=== PATIENT | female | born 1980 | race Caucasian/White ===

== ENCOUNTER 2021-09-14 05:24 | Inpatient (IN) | payer OTHER ==
[2021-09-12 14:58] VITALS: BMI 47.5
[2021-09-14] MEDS ORDERED: ONDANSETRON 4 MG/2 ML VIAL ONE (07:16)
[2021-09-14] MEDS ORDERED: LIDOCAINE HCL/PF 2% SDV 5ML VIAL ONE (07:16)
[2021-09-14] MEDS ORDERED: DEXAMETHASONE SOD PHOSPHATE 4 MG/1 ML VIAL ONE (07:16)
[2021-09-14] MEDS ORDERED: PROPOFOL 20 ML ONE ×2 (07:17→07:58)
[2021-09-14] MEDS ORDERED: MIDAZOLAM HCL 2 MG/2 ML SINGLE DOSE VIAL ONE (07:17)
[2021-09-14] MEDS ORDERED: ROCURONIUM BROMIDE 100 MG/10 ML VIAL ONE ×2 (07:17→08:00)
[2021-09-14] MEDS ORDERED: LIDOCAINE 1%/EPI 1:100000 (20 ML MULTI DOSE VIAL) ONE (07:24)
[2021-09-14] MEDS ORDERED: GLYCOPYRROLATE 0.2 MG/1 ML VIAL ONE (08:30)
[2021-09-14] MEDS ORDERED: NEOSTIGMINE METHYLSULFATE 0.5 MG/ML - 10 ML MDV ONE (08:30)
[2021-09-14] MEDS ORDERED: ONDANSETRON 4 MG/2 ML VIAL IVPUSH PRN (08:49)
[2021-09-14] MEDS: LACTATED RINGERS SOLUTION 1,000 ML IV SCH (09:05)
[2021-09-14] MEDS ORDERED: oxyCODONE HCL 5 MG TABLET ONE (10:27)
[2021-09-14] MEDS: oxyCODONE HCL 5 MG TABLET PO PRN ×4 (10:35→23:50)
[2021-09-14] MEDS ORDERED: oxyCODONE HCL 5 MG TABLET PO PRN (14:32)
[2021-09-14] MEDS ORDERED: ACETAMINOPHEN 325 MG TABLET (FP) PO PRN (14:32)
[2021-09-15] MEDS ORDERED: DEXAMETHASONE SOD PHOSPHATE 10 MG/1 ML VIAL IVPUSH SCH (00:45)
[2021-09-15] MEDS ORDERED: DEXAMETHASONE SOD PHOSPHATE 10 MG/1 ML VIAL IVPUSH ONE (01:06)
[2021-09-15] MEDS: DEXAMETHASONE SOD PHOSPHATE 4 MG/1 ML VIAL IVPUSH SCH ×4 (03:36→21:17)
[2021-09-15] MEDS: oxyCODONE HCL 5 MG TABLET PO PRN ×2 (06:58→14:41)
[2021-09-15] MEDS: LACTATED RINGERS SOLUTION 1,000 ML IV SCH (09:25)
[2021-09-15] MEDS: ALBUTEROL SO4 2.5/IPRATROPIUM 0.5 INH SOL 3 ML VIAL.NEB. NEB SCH ×3 (12:18→20:04)
[2021-09-15] MEDS ORDERED: MEPERIDINE HCL 25 MG/ML VIAL IM PRN ×2 (16:25→16:31)
[2021-09-15] MEDS ORDERED: FUROSEMIDE 40 MG/4 ML INJECTABLE VIAL IVPUSH ONE (17:15)
[2021-09-15] MEDS: morphine SULFATE 4 MG/ML VIAL IVPUSH PRN (23:16)
[2021-09-16] MEDS: DEXAMETHASONE SOD PHOSPHATE 4 MG/1 ML VIAL IVPUSH SCH ×4 (02:58→21:42)
[2021-09-16] MEDS: ALBUTEROL SO4 2.5/IPRATROPIUM 0.5 INH SOL 3 ML VIAL.NEB. NEB SCH ×4 (07:51→20:05)
[2021-09-16] MEDS: morphine SULFATE 4 MG/ML VIAL IVPUSH PRN ×3 (08:15→21:08)
[2021-09-16 09:57] LABS: HEMATOCRIT 39.7 % (32.4-45.2); HEMOGLOBIN 13.6 GM/dL (10.7-15.3); MCH 30.6 pg (25.7-33.7); MCHC 34.3 g/dl (32.0-36.0); MEAN CELL VOLUME 89.4 fl (80-96); MEAN PLT VOLUME 7.5 fl (7.5-11.1); PLATELET COUNT 328 10^3/uL (134-434); RBC 4.44 M/mm3 (3.60-5.2); RDW 14.1 % (11.6-15.6); WHITE BLOOD COUNT 14.3 K/mm3 (4.0-10.0)
[2021-09-16 10:24] LABS: ALBUMIN 3.3 g/dl (3.4-5.0); BLOOD UREA NITROGEN 19.4 mg/dL (7-18); CALCIUM 8.5 mg/dL (8.5-10.1); MAGNESIUM 2.3 mg/dL (1.8-2.4)
[2021-09-16 10:26] LABS: CREATININE 1.1 mg/dL (0.55-1.3); PHOSPHOROUS 4.3 mg/dL (2.5-4.9)
[2021-09-16 10:28] LABS: BILIRUBIN,TOTAL 0.8 mg/dL (0.2-1); TOT PROT 6.7 g/dl (6.4-8.2)
[2021-09-16] MEDS ORDERED: INSULIN SLIDING SCALE (NOVOLOG) 1 VIAL SQ SCH (11:00)
[2021-09-16] MEDS ORDERED: PT OWN MED DRAWER 7, Y5N ONE (15:08)
[2021-09-16] MEDS ORDERED: DEXAMETHASONE SOD PHOSPHATE 4 MG/1 ML VIAL IVPUSH SCH (18:00)
[2021-09-17] MEDS: morphine SULFATE 4 MG/ML VIAL IVPUSH PRN (02:56)
[2021-09-17] MEDS ORDERED: BENZOCAINE/MENTHOL 1 EACH LOZENGE MM ONE (05:08)
[2021-09-17] MEDS ORDERED: PT OWN MED DRAWER 7, Y5N ONE (05:45)
[2021-09-17] MEDS: ALBUTEROL SO4 2.5/IPRATROPIUM 0.5 INH SOL 3 ML VIAL.NEB. NEB SCH ×3 (07:35→15:27)
[2021-09-17 09:30] LABS: BASO % 0.1 % (0-2.0); HEMATOCRIT 42.1 % (32.4-45.2); HEMOGLOBIN 14.2 GM/dL (10.7-15.3); LYMPH % 12.9 % (8-40); MCH 30.6 pg (25.7-33.7); MCHC 33.6 g/dl (32.0-36.0); MEAN CELL VOLUME 90.9 fl (80-96); MEAN PLT VOLUME 7.9 fl (7.5-11.1); PLATELET COUNT 373 10^3/uL (134-434); RBC 4.63 M/mm3 (3.60-5.2); WHITE BLOOD COUNT 14.2 K/mm3 (4.0-10.0)
[2021-09-17] MEDS: DEXAMETHASONE SOD PHOSPHATE 4 MG/1 ML VIAL IVPUSH SCH (09:40)
[2021-09-17 10:02] LABS: ALBUMIN 3.4 g/dl (3.4-5.0); BLOOD UREA NITROGEN 19.7 mg/dL (7-18); CALCIUM 8.9 mg/dL (8.5-10.1); MAGNESIUM 2.6 mg/dL (1.8-2.4)
[2021-09-17 10:05] LABS: BILIRUBIN,TOTAL 0.9 mg/dL (0.2-1); CREATININE 0.9 mg/dL (0.55-1.3); TOT PROT 6.9 g/dl (6.4-8.2)
[2021-09-17 11:27] VITALS: BP 133/75; PULSE 62; TEMP 98.1
== END 2021-09-17 15:49 | disposition home or self-care (01) | DRG 144 ==
LOC: JASUSAT 05:24 → JASU-SURG 05:24 → J6S 14:12 → JASUSAT 09-15 01:06
PROVIDERS: ADMIT Otolaryngology; ATTEND Internal Medicine
PROC: 0CBPXZZ Excision of Tonsils, External Approach (ICD-10-PCS; principal; 2021-09-15)
DX: J35.01 Chronic tonsillitis (principal); Z68.42 Body mass index [BMI] 45.0-49.9, adult; J95.89 Other postprocedural complications and disorders of respiratory system, not elsewhere classified; J98.11 Atelectasis; E66.01 Morbid (severe) obesity due to excess calories; F17.210 Nicotine dependence, cigarettes, uncomplicated; R09.02 Hypoxemia; Y83.9 Surgical procedure, unspecified as the cause of abnormal reaction of the patient, or of later complication, without mention of misadventure at the time of the procedure
CPT/HCPCS: 36415; 71046-TC-FY; 71250-TC; 80053; 81025; 83735; 84100; 85025; 85027; 88304-TC; 94640; 94760; 94761; J1100